=== PATIENT | male | born 2000 | race Caucasian/White ===

== ENCOUNTER 2022-05-27 14:01 | Outpatient (CLI) | payer OTHER, SELFPAY ==
[2022-05-27 19:02] LABS: Appearance Urine Clear (Clear); Bacteria Urine None Seen /hpf; Bilirubin Urine Negative (Negative); Blood Urine Negative (Negative); Color Urine Yellow (Yellow); Glucose Urine UA Negative (Negative); Ketones Urine Negative (Negative); Leukocyte Esterase Ur Trace LEU/UL (NEGATIVE); Nitrate Urine Negative (Negative); Non Pathogenic Casts 0-2; Protein Urine Negative (Negative); RBC Urine 0-2 /hpf (0-2); Squamous Epithelial Cell Urine Occasional /hpf (Few); Urobilinogen Urine 0.2 mg/dL (<2.0); WBC Urine 0-5 /hpf (0-3); pH Urine 7.5 (5.0-9.0)
[2022-05-27 19:35] LABS: Add Urine Microscopic? YES
== END 2022-05-27 14:02 | disposition home or self-care (01) ==
PROVIDERS: PCP Family Medicine; Visit Provider Family Medicine
DX: R39.9 Unspecified symptoms and signs involving the genitourinary system (principal)
CPT/HCPCS: 81001; 87086

== ENCOUNTER 2023-07-02 13:47 | Outpatient (CLI) | payer OTHER, SELFPAY ==
[2023-07-02 22:31] LABS: Appearance Urine Clear (Clear); Bacteria Urine None Seen /hpf; Bilirubin Urine Negative (Negative); Blood Urine Negative (Negative); Color Urine Yellow (Yellow); Glucose Urine UA Negative (Negative); Ketones Urine Negative (Negative); Leukocyte Esterase Ur 2+ LEU/UL (Negative); Need Manual Microscopic Reviewed; Nitrate Urine Negative (Negative); Protein Urine Negative (Negative); RBC Urine 0-2 /hpf (0-2); Specific Grav Ur 1.005 (1.001-1.035); Squamous Epithelial Cell Urine None Seen /hpf (Few); Urobilinogen Urine 0.2 mg/dL (<2.0); WBC Urine 0-5 /hpf (0-3)
[2023-07-02 22:32] LABS: Add Urine Microscopic? YES
== END 2023-07-02 13:48 | disposition home or self-care (01) ==
LOC: ANHBWCLAB 13:48
PROVIDERS: PCP Nurse Practitioner Adult Health; Visit Provider Nurse Practitioner Adult Health
DX: R39.9 Unspecified symptoms and signs involving the genitourinary system (principal)
CPT/HCPCS: 81001

== ENCOUNTER 2023-07-16 11:28 | Outpatient (CLI) | payer OTHER, SELFPAY ==
[2023-07-16 19:53] LABS: Appearance Urine Cloudy (Clear); Bacteria Urine 1+ /hpf; Bilirubin Urine 1+ (Negative); Blood Urine Negative (Negative); Calcium Oxalate Crystals Urine Present /hpf; Color Urine Dark Yellow (Yellow); Glucose Urine UA Negative (Negative); Ketones Urine Trace mg/dL (Negative); Leukocyte Esterase Ur Negative LEU/UL (Negative); Need Manual Microscopic Reviewed; Nitrate Urine Negative (Negative); Non Pathogenic Casts 0-2; Protein Urine Negative (Negative); RBC Urine 0-2 /hpf (0-2); Specific Grav Ur 1.025 (1.001-1.035); Squamous Epithelial Cell Urine Few /hpf (Few); WBC Urine 0-5 /hpf (0-3); pH Urine 6.5 (5.0-9.0)
[2023-07-16 19:55] LABS: Add Urine Microscopic? YES
== END 2023-07-16 11:29 | disposition home or self-care (01) ==
LOC: ANHBWCLAB 11:29
PROVIDERS: PCP Nurse Practitioner Adult Health; Visit Provider Nurse Practitioner Adult Health
DX: R39.9 Unspecified symptoms and signs involving the genitourinary system (principal)
CPT/HCPCS: 81001; 87086

== ENCOUNTER 2023-12-24 07:45 | Outpatient (CLI) | payer OTHER, SELFPAY ==
[2023-12-24 20:57] LABS: Trichomonas Vag PCR NOT DETECTED (NOT DETECTE)
[2023-12-24 21:18] LABS: Chlamydia trachomatis NOT DETECTED (NOT DETECTE); Neisseria gonorrhoeae PCR NOT DETECTED (NOT DETECTE)
== END 2023-12-24 07:46 | disposition home or self-care (01) ==
LOC: ANHCATHLAB 07:49 → ANHBWCLAB 07:50
PROVIDERS: PCP Nurse Practitioner Adult Health; Visit Provider Nurse Practitioner Adult Health
DX: R39.89 Other symptoms and signs involving the genitourinary system (principal)
CPT/HCPCS: 87491; 87591; 87661

== ENCOUNTER 2024-06-21 13:45 | Outpatient (CLI) | payer OTHER, SELFPAY ==
--- OUTSIDE RECORDS SUMMARY | 2024-06-21 13:53 | XMS_ITS | Clinical Summary ---
Author Organization [facility] Address [address] [place] [address] Care Team Providers Care Glass Technician/Installer Name Role Phone May Modi MD Unavailable [phone] Renetta Patel RN Unavailable Unavailab Alexus Chamberlain NP Primary Care Provider [phone] Allergies No known active allergies Medications fluvoxaMINE (LUVOX) 100 mg tablet Take 1 tablet (100 mg total) by mouth daily 022 Active tretinoin (RETIN-A) 0.05 % cream APPLY PEA-SIZED AMOUNT TO ENTIRE FACE AT NIGHT. 30 DAYS SUPPLY. 024 Active norethindrone (MICRONOR) 0.35 mg tabletIndication s: Contraception Take 1 tablet (0.35 mg total) by mouth daily 84 tablet 1 025 2025 Active TRUEplus Insulin 1 mL 28 gauge x /2 syringeIndicatio ns:Hormone replacement therapy USE 1 SYRINGE EVERY 7 DAYS USE TO DRAW UP AND ADMINISTER TESTOSTERONE ONCE WEEKLY 12 each 3 025 Active testosterone cypionate (DEPO-TESTOTERON E) 200 mg/mL injectionIndicat ions:Female-to-m jon transgender person Inject 40mg (0.2mL) subcutaneously once weekly 4 mL 5 025 Active testosterone cypionate (DEPO-TESTOTERON E) 200 mg/mL injectionIndicat ions:Female-to-m jon transgender person Inject 40mg (0.2mL) subcutaneously once weekly 4 mL 5 024 2024 Discontinued(R eorder) TRUEplus Insulin 1 mL 28 gauge x 1/2 syringeIndicatio ns:Hormone replacement therapy 1 each every 7 days Use to draw up and administer testosterone once weekly 12 each 2 024 2024 Discontinued Active Problems Problem Noted Date Diagnosed Date Gender dysphoria 03/13/2023 On pre-exposure prophylaxis for HIV 10/17/2021 Eyefee-rq-tcrr transgender person 08/24/2019 Encounters Date Type Department Care Team Description 04/30/2024 1:30 PM CDT Office Visit [facility] Surgery [facility] [address] [place] [address] Sudha Baez MD Gender dysphoria (Primary Dx) from Last 3 Months Immunizations Immunization Administration Dates Next Due Influenza, Unspecified 12/26/2020(Deferred: Rosy ent Refused) Family History Medical History Relation Name Comments Drug abuse Father Scoliosis Mother Relation Name Status Comments Father Mother Social History Tobacco Use Types Packs/Day Years Used Date Smoking Tobacco: Never Smokeless Tobacco: Never Tobacco Cessation:Counseling Given: Not Answered AUDIT-C Answer Date Recorded Q1: How often do you have a drink containing alc ohol? Monthly or less 04/24/2023 Q2: How many drinks containi ng alcohol do you have on a typical day when you are drinking? 1 or 2 04/24/2023 Q3: How often do you have si x or more drinks on one occasion? Never 04/24/2023 PHQ-2 Answer Date Recorded PHQ-2 TOTAL SCORE 1 06/12/2021 Personal Safety Answer Date Recorded Have you ever been in or are you currently in a harmful physical or emotional relationship or is someone making you feel afraid or unsafe? Denies 04/24/2023 Comments No Sex and Gender Information Value Date Recorded Sex Assigned at Female 11/13/2022 11:27 AM CDT Legal Sex Female 7:28 PM SLATE HANDLER Gender Identity Transgender Male 12/26/2020 1:13 PM SLATE HANDLER Sexual Orientation Cloud 05/08/2022 10 :57 AM CDT Obstetrics History Last Filed Vital Signs Vital Sign Reading Time Taken Comments Blood Pressure 96/59 02/24/2024 8:55 AM SLATE HANDLER Pulse 62 02/24/2024 8:55 AM SLATE HANDLER Temperature 36.7 C (98 F) 02/24/2024 8:55 AM SLATE HANDLER Respiratory Rate 15 04/24/2023 12:00 PM CDT Oxygen Saturation 96% 04/24/2023 12:00 PM CDT Inhaled Oxygen Concentration - - Weight 55.3 kg (122 lb) 02/24/2024 8:55 AM SLATE HANDLER Height 157.5 cm (5' 2 ) 02/24/2024 8:55 AM SLATE HANDLER Body Mass Index 22.31 02/24/2024 8:55 AM SLATE HANDLER Plan of Treatment Health Maintenance Due Date Last Done Comments Cervical Cancer Screening 2001 HPV Vaccines (1 - 3-dose series) 2016 Meningococcal B Vaccine (1 o f 2 - Standard) 2017 Regular Well Visit/Exam 18-64 06/10/2019 Depression Screening 06/12/2022 06/12/2021, 06/12/2021, 04/10/2021, Additional history exists DTaP/Tdap/Td Vaccine (7 - Td or Tdap) 08/20/2022 08/20/2012, 05/09/2006, 09/09/2002, Additional history exists Influenza Vaccine (Season Ended) 2024 Varicella Vaccines Completed 05/09/2006, 06/10/2002 Pneumococcal vaccine <65 Completed 015, 09/09/2002, 09/09/2002, Additional history exists Hepatitis C Screening Completed 05/21/2021 Procedures Procedure Name Priority Date/Time Associated Diagnosis Comments HEPATITIS C ANTIBODY Routine 05/21/2021 10:19 AM CDT Healthcare maintenance Onkfkz-ep-myot transgender person from Last 3 Months or Most Recently Relevant to Health Maintenance Results * Hepatitis C antibody (05/21/2021 10:19 AM CDT) Hep C Ab NON-REACTI VE NON-REACT JAYDE [facility] SIGNAL TO CUT-OFF 0.01 <1.00 [facility] Comment: HCV antibody was non-reactive. There is no laboratory evidence of HCV infection. In most cases, no further action is required. However, if recent HCV exposure is suspected, a test for HCV RNA (test code 48394) is suggested. For additional information please refer to http://education.Vivid [employer].Jaunt/faq/AAN19l4 (This link is being provided for informational/ educational purposes only.) Blood specimen (specimen) 05/21/2021 10:19 AM CDT 05/21/2021 10:21 AM CDT Narrative [facility] - 05/24/2021 8:51 PM CDT FASTING:YES FASTING: YES us Tiffany James MD LAB MICROBIOLOGY - GENE RAL ORDERABLES Final Result [facility] [address] [place] [address] from Last 3 Months or Most Recently Relevant to Health Maintenance Insurance [facility] Care Teams Glass Technician/Installer Relationship Specialty Start Date End Date Alexus Tamayo NP [facility] [address] PCP - General Nurse Practitioner 04/24/23 May Modi MD Consulting Physician Pediatrics 10/02/21 Renetta Patel, RN Registered Nurse 10/02/21
--- OUTSIDE RECORDS SUMMARY | 2024-06-21 13:53 | XMS_ITS | Referral Summary ---
Author Organization [facility] Address [address] [place] [address] Care Team Providers Care Nylon Mender Name Role Phone May Modi MD Unavailable [phone] Renetta Patel RN Unavailable Unavailab Alexus Chamberlain NP Primary Care Provider [phone] Encounters Date Type Department Care Team Description 04/30/2024 1:30 PM CDT Office Visit [facility] Surgery [address] [facility] [address] [place] [phone] Sudha Baez MD Gender dysphoria (Primary Dx) from Last 3 Months Allergies No known active allergies Medications fluvoxaMINE [...] gauge x 1/2 syringeIndicatio ns:Hormone replacement therapy USE 1 SYRINGE [...] weekly 4 mL 5 024 2024 Discontinued(R jeanna) TRUEplus Insulin 1 mL 28 gauge x 1/2 syringeIndicatio ns:Hormone replacement therapy 1 each every 7 days Use to draw up and administer testosterone once weekly 12 each 2 024 2024 Discontinued Active Problems Problem Noted Date Diagnosed Date Gender dysphoria 03/13/2023 On pre-exposure prophylaxis for HIV 10/17/2021 Ejkpuy-aw-wtga transgender person 08/24/2019 Immunizations Immunization Administration Dates Next Due Influenza, Unspecified 12/26/2020(Deferred: Rosy ent Refused) Social History Tobacco Use Types Packs/Day Years [...] AM CDT Legal Sex Female 7:28 PM GAS SCRUBBER OPERATOR Gender Identity Transgender Male 12/26/2020 1:13 PM GAS SCRUBBER OPERATOR Sexual Orientation Cloud 05/08/2022 10 :57 AM CDT Last Filed Vital Signs Vital Sign Reading Time Taken Comments Blood Pressure 96/59 02/24/2024 8:55 AM GAS SCRUBBER OPERATOR Pulse 62 02/24/2024 8:55 AM GAS SCRUBBER OPERATOR Temperature 36.7 C (98 F) 02/24/2024 8:55 AM GAS SCRUBBER OPERATOR Respiratory Rate 15 04/24/2023 12:00 PM CDT Oxygen Saturation 96% 04/24/2023 12:00 PM CDT Inhaled Oxygen Concentration - - Weight 55.3 kg (122 lb) 02/24/2024 8:55 AM GAS SCRUBBER OPERATOR Height 157.5 cm (5' 2 ) 02/24/2024 8:55 AM GAS SCRUBBER OPERATOR Body Mass Index 22.31 02/24/2024 8:55 AM GAS SCRUBBER OPERATOR Plan of Treatment Not on file Procedures Procedure Name Priority Date/Time Associated Diagnosis Comments HEPATITIS C ANTIBODY Routine 05/21/2021 10:19 AM CDT Healthcare maintenance Qdmqcm-zx-gpzr transgender person from Last 3 Months or Most Recently Relevant to Health Maintenance Results * Hepatitis C antibody (05/21/2021 10:19 AM CDT) Hep C Ab NON-REACTI VE NON-REACT JAYDE [facility] SIGNAL TO CUT-OFF 0.01 <1.00 [facility] Comment: HCV antibody was non-reactive. There is no laboratory evidence of HCV infection. In most cases, no further action is required. However, if recent HCV exposure is suspected, a test for HCV RNA (test code 92382) is suggested. For additional information please refer to http://education.[employer] Movie [employer]/faq/WRR05l0 (This link is being provided for informational/ educational purposes only.) Blood specimen (specimen) 05/21/2021 10:19 AM CDT 05/21/2021 10:21 AM CDT Narrative [facility] - 05/24/2021 8:51 PM CDT FASTING:YES FASTING: YES us Tiffany James MD LAB MICROBIOLOGY - GENE RAL ORDERABLES Final Result [facility] [id number] [place] [address] from Last 3 Months or Most Recently Relevant to Health Maintenance Insurance [facility] Care Teams Nylon Mender Relationship Specialty Start Date End Date Alexus Tamayo NP [facility] [place] [address] PCP - General Nurse Practitioner 04/24/23 May Modi MD Consulting Physician Pediatrics 10/02/21 Renetta Patel, RN Registered Nurse 10/02/21
--- OUTSIDE RECORDS SUMMARY | 2024-06-21 13:53 | XMS_ITS | Clinical Summary ---
Author Organization [facility] Address [address] [place] [address] Phone Care Team Providers Care Veterinary Medicine Teacher Name Role Phone Alexus Tamayo APRN Primary Care Provider [phone] Alexus Tamayo APRN Unavailable [phone] Allergies No known active allergies Medications ketorolac (TORADOL) 10 MG Tablet Take 1 Tab by mouth every 6 hours as needed for Moderate or more severe pain. 20 Tab 8 Active tamsulosin (FLOMAX) 0.4 MG Capsule Take 1 Cap by mouth daily. 5 Cap 8 Active FLUVOXAMINE MALEATE PO Take by mouth. Acti ve TESTOSTERONE TD by Transdermal route. Active Active Problems Problem Noted Date Diagnosed Date Autism spectrum disorder, wi thout accompanying intellectual or language impairment, requiring support (level 1) 05/12/2024 Obsessive compulsive disorder, with good or fair insight 05/12/2024 ROSIBEL (generalized anxiety disorder) 05/12/2024 Developmental disorder 02/19/2024 Encounters Date Type Department Care Team Description 06/02/2024 1:30 PM CDT Outpatient [facility] [address] [place] [address] Adilene English, DRYWALL STRIPPER HELPER Autism spectrum disorder, without accompanying intellectual or language impairment, requiring support (level 1) (Primary Dx); Obsessive compulsive disorder, with good or fair insight; ROSIBEL (generalized anxiety disorder); Major depressive disorder, single episode, moderate (HCC) Discharge Disposition: Discharged to home or Selfcare 06/02/2024 Travel 05/12/2024 10:30 AM CDT Outpatient [facility] [address] [place] [address] Micky Shah, Adilene Jc LCSW Autism spectrum disorder, without accompanying intellectual or language impairment, requiring support (level 1) (Primary Dx); Obsessive compulsive disorder, with good or fair insight; ROSIBEL (generalized anxiety disorder); Major depressive disorder, single episode, moderate (HCC) Discharge Disposition: Discharged to home or Selfcare 05/11/2024 Travel 04/23/2024 Telephone [facility] [address] [place] [address] Adilene English LCSW 04/07/2024 8:30 AM AQUACULTURE PROGRAM DIRECTOR Outpatient Clinic [facility] [address] [place] [phone] Braeden Cedeno PSYD Autism spectrum disorder, without accompanying intellectual or language impairment, requiring support (level 1) (Primary Dx); ROSIBEL (generalized anxiety disorder); Obsessive compulsive disorder, with good or fair insight; Major depressive disorder, single episode, moderate (HCC) Discharge Disposition: Discharged to home or Selfcare 04/07/2024 Travel 04/06/2024 Travel 03/27/2024 Travel from Last 3 Months Family History Relation Name Status Comments Brother (23) Alive Father Alive Mother Alive Social History Tobacco Use Types Packs/Day Years Used Date Smoking Tobacco: Never Smokeless Tobacco: Never Alcohol Use Standard Drinks/Week Comments No 0 (1 standard drink = 0.6 oz pur e alcohol) Comments No Sex and Gender Information Value Date Recorded Sex Assigned at Female 06/18/2023 11:27 AM CDT Legal Sex Female 7:40 PM CDT Gender Identity Transgender Male 06/18/2023 11:2 7 AM CDT Sexual Orientation Not on file Last Filed Vital Signs Vital Sign Reading Time Taken Comments Blood Pressure 131/74 09/11/2017 8:05 PM CDT Pulse 93 09/11/2017 8:05 PM CDT Temperature 37 C (98.6 F) 09/11/2017 8:05 PM CDT Respiratory Rate 18 09/11/2017 8:05 PM CDT Oxygen Saturation 100% 09/11/2017 8:05 PM CDT Inhaled Oxygen Concentration - - Weight 78 kg (172 lb) 09/11/2017 8:05 PM CDT Height 158.8 cm (5' 2.5 ) 09/11/2017 8:05 PM CDT Body Mass Index 30.96 09/11/2017 8:05 PM CDT Plan of Treatment Upcoming Encounters Date Type Department Care Team (Latest Contact Info) Description 06/25/2024 9:45 AM CDT Outpatient Clinic Visit [facility] [address] [place] [address] Adilene English, DRYWALL STRIPPER HELPER [address] [place] [address] Discharge Disposition: Discharged to home or Selfcare 07/07/2024 1:00 PM CDT Outpatient Clinic Visit [facility] [address] [place] [address] Adilene English, DRYWALL STRIPPER HELPER [address] [place] [address] Discharge Disposition: Discharged to home or Selfcare Health Maintenance Due Date Last Done Comments Hepatitis C Virus (HCV) Screening 2001 Human Papillomavirus (HPV) Immunization (1 - 3-dose series) 2016 Meningococcal B Immunization (1 of 2 - Standard) 2017 SARS-COV-2 Immunization ( season) 2023 Influenza Immunization (Season Ended) 2024 Respiratory Syncytial Virus (RSV) Immunization (Adult) (1 - 1-dose 75+ series) 2076 Polio (IPV) Immunization Discontinued 09/09/2002, 09/11 Measles Mumps Rubella (MMR) Immunization Discontinued 05/09/2006, 06/10/2002 Varicella Immunization Discontinued 05/09/2006, 2002 DTaP/Tdap/Td Immunization Discontinued 2012, 05/09/2006, 09/09/2002, Additional history exists TdaP Immunization Completed 08/20/2012 Hepatitis B Immunization Completed 015, 09/09/2002, 2001, Additional history exists Meningococcal Immunization (ACWY) Aged Out 09/22/2014 No longer eligible based on patient's age to complete this topic Pneumococcal Immunization Combined Aged Out 09/22/2014, 09/09/2002, 2001, Additional history exists No longer eligible based on patient's age to complete this topic Rotavirus Immunization Aged Out No lo nger eligible based on patient's age to complete this topic Goals Goal Patient Goal Type Associated Problems Recent Progress Patient-Stated? Author Process thoughts and stressors Behavioral Health On track(2024 1:58 PM CDT) Yes Adilene English LCSW Note: Goal/Objective: Increase ability to process and gain insight. Anticipated Time Frame for Goal Completion: 8 months Goal Reviewed with: patient Readiness to change: Thinking about making a change Department associated with goal: [facility] Steps to achieve goal: will attend counseling/psychotherapy sessions at least once monthly, at least 6 sessions, utilizing individual and/or group sessions to express thoughts and feelings. to identify, verbalize and process at least three contributing factors/triggers to anxiety and depression. to identify and verbalize at least three actions/skills to prevent and/or cope with anxiety and depression. to put into action, at least one time weekly, for one month, an action/skill to prevent and or cope with anxiety and depression. find better ways to manage anger/coping skills Behavioral Health No change(06/02 1:58 PM CDT) Yes Adilene English LCSW Note: Goal/Objective: Increase coping skills . Anticipated Time Frame for Goal Completion: 8 months Goal Reviewed with: patient Readiness to change: Ready to change Department associated with goal: [facility] Steps to achieve goal: will attend counseling/psychotherapy sessions at least once monthly, at least 6 sessions, utilizing individual and/or group sessions to express thoughts and feelings. to identify, verbalize and process at least three contributing factors/triggers to anxiety and depression. to identify and verbalize at least three actions/skills to prevent and/or cope with anxiety and depression. to put into action, at least one time weekly, for one month, an action/skill to prevent and or cope with anxiety and depression. work through childhood trauma Behavioral Health No change(06/02 2:51 PM CDT) Yes Adilene English, DRYWALL STRIPPER HELPER Insurance MEDICAID [employer] Care Teams Veterinary Medicine Teacher Relationship Specialty Start Date End Date Alexus Tamayo APRN PCP - General Advanced Practice Nurse 06/19/23 Alexus Tamayo APRN Advanced Practice Nurse 06/19/23
--- OUTSIDE RECORDS SUMMARY | 2024-06-21 13:53 | XMS_ITS | Clinical Summary ---
Author Organization [facility] Address [address] [facility] [place] [address] Care Team Providers Care Cork Tipper Name Role Phone Alexus Tamayo CAMILA-CHILD AND ADOLESCENT THERAPIST Primary Care Provider + Source Comments [facility],non-owned Affiliates and Associated Physician Practices is amultiple site organization consisting of ambulatory clinics and hospital sitesin [place], [place], [place] and [place]. This disclosure is being madepursuant to the Care Everywhere program and may not contain all information available regarding this patient. Last updated 17.[facility] Allergies No known active allergies Medications * Be aware that medications may not be up to date on this document. Alwaysverify current medications with the patient. fluvoxaMINE (Luvox) 50 MG tablet 2 Active testosterone cypionate (Depo-Testoste rupesh) 200 MG/ML injection INJECT 40MG (0.2ML) SUBCUTANEOUSLY ONCE WEEKLY 4 Active norethindrone (Ortho Micronor; Nor-Qd; Renetta; Sailaja; Pema-Be; Trice; Jolivette) 0.35 MG tablet 3 Active TRUEplus Insulin Syringe 28G X 1/2 1 ML MISC 1 EACH EVERY 7 DAYS USE TO DRAW UP AND ADMINISTER TESTOSTERONE ONCE WEEKLY 3 Active doxycycline hyclate 100 MG tabletIndicati ons:Other acne Take 1 (one) tablet by mouth 2 times daily with morning and evening meal for 90 days 60 tablet 2 4 Active Additional Information Patient not taking.Reported on 06/04/2023 clindamycin-be nzoyl peroxide (Duac) 1.2-5 % gelIndications :Other acne Apply thin layer to ENTIRE face every MORNING. 30 day supply. 45 g 5 4 Active Additional Information Patient not taking.Reported on 06/04/2023 tretinoin (Retin-A) 0.025 % cream Pea sized amount to entire face at night. 45 g 5 5 Active pimecrolimus (Elidel) 1 % creamIndicatio ns:Other specified dermatitis Apply to creases twice a day 60 g 1 5 Active ketoconazole (Nizoral) 2 % shampoo Apply to wet hair, leave on for 3 minutes, then rinse; three times weekly. 30 days supply 120 mL 3 5 Active Active Problems Problem Noted Date Diagnosed Date Other acne 03/11/2023 Multiple benign melanocytic nevi of upper and lower extremities and trunk 03/11/2023 Encounters Date Type Department Care Team Description 05/19/2024 9:40 AM CDT Office Visit [facility] D[facility]ology [address] [place] [phone] Blank Sales MD Other specified dermatitis (Primary Dx) 05/19/2024 Travel from Last 3 Months Social History Tobacco Use Types Packs/Day Years Used Date Smoking Tobacco: Never Smokeless Tobacco: Never Tobacco Cessation:Counseling Given: Not Answered Alcohol Use Standard Drinks/Week Comments Not Currently 0 (1 standard drink = 0.6 oz pur e alcohol) occasional Comments Unknown Sex and Gender Information Value Date Recorded Sex Assigned at Female 06/03/2023 11:11 PM CDT Legal Sex Female 11:11 PM CDT Gender Identity Transgender Male 06/03/2023 11:1 1 PM CDT Sexual Orientation Choose not to disclose 2023 11:11 PM CDT Plan of Treatment Upcoming Encounters Date Type Department Care Team (Late st Contact Info) Description 05/25/2025 10:10 AM CDT Office Visit [facility] Dermatology [address] [place] [phone] Blank Sales MD [address] [place] [address] [place] [address] Health Maintenance Due Date Last Done Comments PAP SMEAR 2001 HIV SCREENING 2016 HPV VACCINE (1 - 3-dose series) 2016 CHLAMYDIA/GONORRHEA SCREENING 2017 MENINGOCOCCAL (Group B) VACC INE SHARED DECISION-MAKING (1 of 2 - Standard) 2017 HEPATITIS C SCREENING 06/05/2019 DTAP/TDAP/TD VACCINES (1 - Tdap) 2020 HEPATITIS B VACCINE (1 of 3 - 19+ 3-dose series) 2020 COVID-19 VACCINE (1 - 2023-2 5 season) 2023 DEPRESSION SCREENING 02/11/2024 INFLUENZA VACCINE (Season Ended) 2024 ZOSTER VACCINE (1 of 2) 06/10/2051 HIB VACCINE Aged Out No longer eligi ble based on patient's age to complete this topic MENINGOCOCCAL GROUPS A/C/Y/W VACCINE Aged Out No longer eligible b ased on patient's age to complete this topic PNEUMOCOCCAL VACCINE Aged Out No long er eligible based on patient's age to complete this topic Insurance [facility] Care Teams Cork Tipper Relationship Specialty Start Date End Date Alexus Tamayo APRN-JENN [address] [address] PCP - General Nurse Practitioner 05/10/24
[2024-06-21 19:21] LABS: Basophils Percent Auto 0.9 % (0.2-1.2); Eosinophils Absolute Auto 0.1 K/mm3 (0-0.3); Eosinophils Percent Auto 4.2 % (0-4.4); Hematocrit 41.8 % (42.0-52.0); Hemoglobin 13.6 g/dL (14.0-18.0); Lymphocytes Absolute Auto 1.19 K/mm3 (0.9-3.2); Lymphocytes Percent Auto 35.6 % (18.3-44.2); Mean Corpuscular HGB Conc 32.5 g/dl (32-36); Mean Corpuscular Hemoglobin 29.8 pg (26-34); Mean Corpuscular Volume 91.7 fl (80-100); Mean Platelet Volume 10.8 fl (7.4-10.4); Monocytes Absolute Auto 0.3 K/mm3 (0.1-0.6); Monocytes Percent Auto 8.7 % (2.6-8.5); Neutrophils Absolute Auto 1.7 K/mm3 (1.3-6.7); Neutrophils Percent Auto 50.6 % (45.5-73.1); Platelet Count Result 182 k/mm3 (150-375); Red Blood Count 4.56 M/mm3 (4.6-6.20); Red Cell Distribution Width 12.1 % (11.5-14.5); White Blood Count 3.3 K/mm3 (4.5-10.0)
[2024-06-21 20:51] LABS: Alanine Aminotransferase 16 U/L (6-50); Albumin Level 4.6 g/dL (3.5-5.1); Alkaline Phosphatase 54 U/L (38-126); Anion Gap 8 mmol/L (4-12); Aspartate Amino Transferase 44 U/L (17-59); Bilirubin,Total 0.8 mg/dL (0.2-1.3); Blood Urea Nitrogen 16 mg/dL (9-20); Calcium 9.2 mg/dL (8.4-10.2); Carbon Dioxide 27 mmol/L (22-30); Chloride 103 mmol/L (98-107); Estimated Glomerular Filt Rate > 60; Glucose 82 mg/dL (65-110); Sodium 138 mmol/L (137-145)
[2024-06-21 21:54] LABS: Free T4 Free Thyroxine 0.89 ng/dL (0.78-2.19); Vitamin D 25 Hydroxy 41.4 ng/mL
== END 2024-06-21 13:46 | disposition home or self-care (01) ==
LOC: ANHBWCLAB 13:47
PROVIDERS: PCP Nurse Practitioner Adult Health; Visit Provider Nurse Practitioner Adult Health
DX: Z13.9 Encounter for screening, unspecified (principal); R53.83 Other fatigue
CPT/HCPCS: 36415; 80053; 82306; 82607; 84439; 84443; 85025

== ENCOUNTER 2024-06-22 14:05 | Outpatient (CLI) | payer OTHER, SELFPAY ==
--- OUTSIDE RECORDS SUMMARY | 2024-06-22 14:22 | XMS_ITS | Clinical Summary ---
Author Organization [facility] Address [address] [place] [address] Care Team Providers Care Recovery Coach Name Role Phone May Modi MD Unavailable [phone] Renetta Patel RN Unavailable Unavailab Alexus Chamberlain NP Primary Care Provider [phone] Allergies No known active allergies Medications fluvoxaMINE [...] 03/13/2023 On pre-exposure prophylaxis for HIV 10/17/2021 Srdoai-uf-zzjm transgender person 08/24/2019 Encounters Date Type Department Care Team Description 04/30/2024 1:30 PM CDT Office Visit [facility] Surgery [facility] [facility] [address] [place] [address] Sudha Baez MD Gender dysphoria [...] AM CDT Legal Sex Female 7:28 PM PLANT PULLER Gender Identity Transgender Male 12/26/2020 1:13 PM PLANT PULLER Sexual Orientation Cluod 05/08/2022 10 :57 AM CDT Obstetrics History Last Filed Vital Signs Vital Sign Reading Time Taken Comments Blood Pressure 96/59 02/24/2024 8:55 AM PLANT PULLER Pulse 62 02/24/2024 8:55 AM PLANT PULLER Temperature 36.7 C (98 F) 02/24/2024 8:55 AM PLANT PULLER Respiratory Rate 15 04/24/2023 12:00 PM CDT Oxygen Saturation 96% 04/24/2023 12:00 PM CDT Inhaled Oxygen Concentration - - Weight 55.3 kg (122 lb) 02/24/2024 8:55 AM PLANT PULLER Height 157.5 cm (5' 2 ) 02/24/2024 8:55 AM PLANT PULLER Body Mass Index 22.31 02/24/2024 8:55 AM PLANT PULLER Plan of Treatment Health Maintenance Due Date [...] Routine 05/21/2021 10:19 AM CDT Healthcare maintenance Oigymr-rt-ulmv transgender person from Last 3 Months or [...] a test for HCV RNA (test code 42872) is suggested. For additional information please refer to http://education.[employer].Dashbook/faq/QKX54f8 (This link is being provided for informational/ educational purposes only.) Blood specimen (specimen) 05/21/2021 10:19 AM CDT 05/21/2021 10:21 AM CDT Narrative [facility] - 05/24/2021 8:51 PM CDT FASTING:YES FASTING: YES us Tiffany James MD LAB MICROBIOLOGY - GENE RAL ORDERABLES Final Result [facility] [address] [place] [address] from Last 3 Months or Most Recently Relevant to Health Maintenance Insurance [facility] Care Teams Recovery Coach Relationship Specialty Start Date End Date Alexus Tamayo NP [facility] [place] [address] PCP - General Nurse Practitioner 04/24/23 May Modi MD Consulting Physician Pediatrics 10/02/21 Renetta Patel, RN Registered Nurse 10/02/21
--- OUTSIDE RECORDS SUMMARY | 2024-06-22 14:22 | XMS_ITS | Referral Summary ---
Author Organization [facility] Address [address] [place] [address] Care Team Providers Care Mice Raiser Name Role Phone May Modi MD Unavailable [phone] Renetta Patel RN Unavailable Unavailab Alexus Chamberlain NP Primary Care Provider [phone] Encounters Date Type Department Care Team Description 04/30/2024 1:30 PM CDT Office Visit [facility] Surgery [address] [place] [id number] Sudha Baez MD Gender dysphoria (Primary Dx) [...] 03/13/2023 On pre-exposure prophylaxis for HIV 10/17/2021 Xpwaen-sb-lgix transgender person 08/24/2019 Immunizations Immunization Administration Dates [...] AM CDT Legal Sex Female 7:28 PM [employer] EXTRACTOR Gender Identity Transgender Male 12/26/2020 1:13 PM [employer] EXTR[employer]OR Sexual Orientation Cloud 05/08/2022 10 :57 AM CDT Last Filed Vital Signs Vital Sign Reading Time Taken Comments Blood Pressure 96/59 02/24/2024 8:55 AM [employer] EXTRACTOR Pulse 62 02/24/2024 8:55 AM [employer] EXTRACTOR Temperature 36.7 C (98 F) 02/24/2024 8:55 AM [employer]ODU[employer] EXTRACTOR Respiratory Rate 15 04/24/2023 12:00 PM CDT Oxygen Saturation 96% 04/24/2023 12:00 PM CDT Inhaled Oxygen Concentration - - Weight 55.3 kg (122 lb) 02/24/2024 8:55 AM [employer] EXTRACTOR Height 157.5 cm (5' 2 ) 02/24/2024 8:55 AM [employer] EXTRACTOR Body Mass Index 22.31 02/24/2024 8:55 AM [employer] EXTRACTOR Plan of Treatment Not on file Procedures Procedure Name Priority Date/Time Associated Diagnosis Comments HEPATITIS C ANTIBODY Routine 05/21/2021 10:19 AM CDT Healthcare maintenance Gjmqrv-fw-fsse transgender person from Last 3 Months or Most Recently Relevant to Health Maintenance Results * Hepatitis C antibody (05/21/2021 10:19 AM CDT) Hep C Ab NON-REACTI VE NON-REACT JAYDE [facility] SIGNAL TO CUT-OFF 0.01 <1.00 [facility] Comment: HCV antibody was non-reactive. There is no laboratory evidence of HCV infection. In most cases, no further action is required. However, if recent HCV exposure is suspected, a test for HCV RNA (test code 51035) is suggested. For additional information please refer to http://education.[employer]/faq/DEV54a3 (This link is being provided for informational/ educational purposes only.) Blood specimen (specimen) 05/21/2021 10:19 AM CDT 05/21/2021 10:21 AM CDT Narrative [facility] - 05/24/2021 8:51 PM CDT FASTING:YES FASTING: YES us Tiffany James MD LAB MICROBIOLOGY - GENE RAL ORDERABLES Final Result [facility] [address] [phone] from Last 3 Months or Most Recently Relevant to Health Maintenance Insurance [facility] Care Teams Mice Raiser Relationship Specialty Start Date End Date Alexus Tamayo NP [facility] [place] [address] PCP - General Nurse Practitioner 04/24/23 May Modi MD Consulting Physician Pediatrics 10/02/21 Renetta Patel, RN Registered Nurse 10/02/21
--- OUTSIDE RECORDS SUMMARY | 2024-06-22 14:22 | XMS_ITS | Clinical Summary ---
Author Organization [facility] [employer] Address [address] [place] [address] Care Team Providers Care Public Information Director Name Role Phone Alexus Tamayo CAMILA-CELLOPHANE BAG MACHINE OPERATOR Primary Care Provider + Source Comments [facility] [employer],non-owned Affiliates and Associated Physician Practices is amultiple site organization consisting of ambulatory clinics and hospital sitesin [place], [place], [place] and [place]. This disclosure is being madepursuant to the Care Everywhere program and may not contain all information available regarding this patient. Last updated 17.[employer] Allergies No known active allergies Medications * [...] Description 05/19/2024 9:40 AM CDT Office Visit [facility] D[facility]ology [address] [place] [phone] Blank Sales MD Other specified dermatitis (Primary [...] Description 05/25/2025 10:10 AM CDT Office Visit [facility] [address] [place] [phone] Blank Sales MD [address] [place] [address] [place] [address] Health Maintenance Due Date Last Done Comments [...] patient's age to complete this topic Insurance [facility] Care Teams Public Information Director Relationship Specialty Start Date End Date Alexus Tamayo APRN-JENN [address] [address] PCP - General Nurse Practitioner 05/10/24
[2024-06-22 21:02] LABS: Iron 139 ug/dL (49-181)
[2024-06-22 21:11] LABS: Percent Iron Saturation 39 % (20-50)
== END 2024-06-22 14:06 | disposition home or self-care (01) ==
LOC: ANHBWCLAB 14:06
PROVIDERS: PCP Nurse Practitioner Adult Health; Visit Provider Nurse Practitioner Adult Health
DX: D64.9 Anemia, unspecified (principal)
CPT/HCPCS: 36415; 82728; 83540; 83550